=== PATIENT | male | born 2000 | race Caucasian/White ===

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

== ENCOUNTER 2019-03-12 18:15 | Emergency (ER) | payer OTHER ==
[~2019-03-12] VITALS: Ht 175.3 cm; Wt 124.3 kg
[2019-03-12 18:22] VITALS: BP 139/86; Ht 175.3 cm; Wt 124.3 kg
== END 2019-03-12 20:30 | disposition home or self-care (01) ==
LOC: ED 18:15
DX: R10.813 Right lower quadrant abdominal tenderness (principal); R11.0 Nausea; J45.909 Unspecified asthma, uncomplicated; Z90.89 Acquired absence of other organs

== ENCOUNTER 2019-11-17 12:18 | Emergency (ER) | payer OTHER ==
[~2019-11-17] VITALS: Ht 175.3 cm; Wt 132.9 kg
[2019-11-17 12:32] VITALS: Ht 175.3 cm; Wt 132.9 kg
[2019-11-17 13:38] LABS: BASOPHIL % 0.2 % (0-2); PLATELET COUNT 203 x10^3mcL (130-400); RED CELL DISTRIBUTION WIDTH 12.6 % (11.5-14.5)
[2019-11-17 13:53] LABS: ALBUMIN 4.1 g/dL (3.4-5.0); ALKALINE PHOSPHATASE 79 U/L (46-116); ALT/SGPT 39 U/L (16-63); AST/SGOT 12 U/L (15-37); BILIRUBIN TOTAL 0.7 mg/dL (0.20-1.00); CARBON DIOXIDE 26.8 mmol/L (21-32); CHLORIDE SERUM 102 mmol/L (98-107); CREATININE SERUM 0.7 mg/dL (0.7-1.3); GFR1 > 60 mL/min; GLUCOSE SERUM 85 mg/dL (74-106); LIPASE 55 IU/L (73-393); POTASSIUM SERUM 4.1 mmol/L (3.5-5.1); SODIUM SERUM 139 mmol/L (136-145)
[2019-11-17 14:02] LABS: TOTAL PROTEIN, SERUM 8.4 g/dL (6.4-8.2)
[2019-11-17 14:10] LABS: CALCIUM 9.3 mg/dL (8.5-10.1)
[2019-11-17 16:02] VITALS: BP 128/77
== END 2019-11-17 16:02 | disposition home or self-care (01) ==
LOC: ED 12:18
PROVIDERS: Specialist
DX: R10.31 Right lower quadrant pain (principal); R10.33 Periumbilical pain; J45.909 Unspecified asthma, uncomplicated; Z90.89 Acquired absence of other organs
CPT/HCPCS: 36415; Q0092